=== PATIENT | female | born 1940 | race African-American/Black ===

== ENCOUNTER 2019-05-19 19:10 | Emergency (ER) | payer OTHER ==
[~2019-05-19] VITALS: Ht 167.6 cm; Wt 50.0 kg
[2019-05-19] MEDS ORDERED: DIPHENHYDRAMINE 50MG/ML VIAL IV ONE (19:45)
[2019-05-19] MEDS ORDERED: FAMOTIDINE 20MG/2ML VIAL IV ONE (19:45)
[2019-05-19] MEDS ORDERED: DEXAMETHASONE 4MG/ML 1ML VIAL IV ONE (19:45)
[2019-05-20 01:31] VITALS: BP 175/79
== END 2019-05-20 01:33 | disposition home or self-care (01) ==
LOC: ER 19:10
DX: T78.49XA Other allergy, initial encounter (principal); X58.XXXA Exposure to other specified factors, initial encounter; E11.9 Type 2 diabetes mellitus without complications; I10 Essential (primary) hypertension; F03.90 Unspecified dementia, unspecified severity, without behavioral disturbance, psychotic disturbance, mood disturbance, and anxiety
CPT/HCPCS: 96374; 96375; 99283; J1100; J1200; J3490